=== PATIENT | male | born 1995 | race Caucasian/White ===

== ENCOUNTER 2021-10-30 15:00 | Emergency (ER) | payer OTHER ==
[~2021-10-30] VITALS: Ht 162.6 cm; Wt 81.6 kg
[2021-10-30 15:07] VITALS: BP 131/86
[2021-10-30] MEDS ORDERED: IBUP-2213 PO (16:14)
[2021-10-30] MEDS ORDERED: BENZ-300 PO (16:14)
--- NOTE | 2021-10-30 16:37 | NUR ---
Patient given written and verbal discharge instructions and verbalizes understanding. Given copies of tests performed during visit. Patient is awake, alert and oriented. Ambulatory with steady gait. Refuses offer of residential placement. Given list of available shelters in surrounding areas. sandwhich and juice provided to pt prior to dc
== END 2021-10-30 16:37 | disposition home or self-care (01) ==
LOC: MED 15:00
DX: J02.9 Acute pharyngitis, unspecified (principal); R03.0 Elevated blood-pressure reading, without diagnosis of hypertension; R21 Rash and other nonspecific skin eruption; Z79.899 Other long term (current) drug therapy; Z79.1 Long term (current) use of non-steroidal anti-inflammatories (NSAID)
CPT/HCPCS: 99282

== ENCOUNTER 2022-01-18 20:53 | Emergency (ER) | payer OTHER ==
[~2022-01-18] VITALS: Ht 180.3 cm; Wt 93.0 kg
[~2022-01-18 20:53] MED LIST: BENZ-300 PO; IBUP-2213 PO
[2022-01-18 21:30] VITALS: BP 151/91
[2022-01-18] MEDS ORDERED: KETOROLAC 30 MG/ML VIAL IM ONE (22:05)
[2022-01-18] MEDS ORDERED: diazePAM 5 MG TAB PO ONE (22:45)
[2022-01-18] MEDS ORDERED: KETOROLAC 30 MG/ML VIAL IVP ONE (23:15)
[2022-01-18] MEDS ORDERED: NACL 0.9% 1,000 ML IV ONE (23:15)
--- NOTE | 2022-01-18 23:20 | NUR ---
ER Physician at bedside assessing patient.
[2022-01-18 23:31] LABS: BASOPHILS # (AUTO) 0.1 K/uL (0.00-0.22); BASOPHILS % (AUTO) 0.4 % (0.0-2.0); EOSINOPHILS # (AUTO) 0.1 K/uL (0-0.4); EOSINOPHILS % (AUTO) 0.4 % (0.0-4.0); HEMATOCRIT 45.5 % (36-52); HEMOGLOBIN 15.4 g/dL (12.0-18.0); LYMPHOCYTES # (AUTO) 1.8 K/uL (2.0-11.5); LYMPHOCYTES % (AUTO) 11.1 % (20.5-51.1); MEAN CORPUSCULAR HEMOGLOBIN 30 pg (27-31); MEAN CORPUSCULAR HGB CONC 34 g/dL (33-37); MEAN CORPUSCULAR VOLUME 87.4 fL (80-94); MONOCYTES # (AUTO) 1.1 K/uL (0.8-1.0); MONOCYTES % (AUTO) 6.9 % (1.7-9.3); NEUTROPHILS % (AUTO) 81.2 % (42.2-75.2); PLATELET COUNT (AUTO) 248 K/uL (140-450); RED BLOOD CELL COUNT(AUTO) 5.21 MIL/uL (4.20-6.10); RED CELL DISTRIBUTION WIDTH 14.2 % (11.6-13.7)
[2022-01-18 23:54] LABS: CARBON DIOXIDE 27.6 mmol/L (21-32); POTASSIUM 4.6 mmol/L (3.5-5.1)
[2022-01-19] MEDS ORDERED: NAPR-1717 PO (00:15)
[2022-01-19] MEDS ORDERED: DIAZ5TAB6 PO (00:15)
--- NOTE | 2022-01-19 00:45 | NUR ---
Patient resting comfortably in bed, chest rise and fall symmetrical, no c/o pain or s/s of discomfort.
[2022-01-19 01:41] VITALS: BP 118/72
== END 2022-01-19 01:52 | disposition home or self-care (01) ==
LOC: MED 20:53
DX: R07.89 Other chest pain (principal); R10.9 Unspecified abdominal pain; I10 Essential (primary) hypertension; Z79.899 Other long term (current) drug therapy; Z98.890 Other specified postprocedural states; V43.92XA Unspecified car occupant injured in collision with other type car in traffic accident, initial encounter; Y93.89 Activity, other specified; Y92.89 Other specified places as the place of occurrence of the external cause; Y99.8 Other external cause status
CPT/HCPCS: 36415; 71045; 74177; 80048; 85025; 96361; 96374; 99285; J1885; J7030; Q0092; Q9967